=== PATIENT | male | born 1995 | race Caucasian/White ===

== ENCOUNTER 2021-07-11 11:26 | Emergency (ER) | payer OTHER ==
[~2021-07-11] VITALS: Ht 188 cm; Wt 81.7 kg
[2021-07-11] MEDS ORDERED: NORCO5 PO (13:58)
[2021-07-11] MEDS ORDERED: KEFLEX750 MG PO (13:58)
[2021-07-11 14:13] VITALS: BP 138/89
== END 2021-07-11 14:13 | disposition home or self-care (01) ==
LOC: ER 11:26
DX: S61.031A Puncture wound without foreign body of right thumb without damage to nail, initial encounter (principal); W29.8XXA Contact with other powered hand tools and household machinery, initial encounter; Y93.89 Activity, other specified; Y92.89 Other specified places as the place of occurrence of the external cause; Y99.8 Other external cause status